=== PATIENT | male | born 1950 | race Caucasian/White ===

== ENCOUNTER 2020-04-11 12:48 | Day surgery (SDC) | payer OTHER ==
[2020-04-05 11:09] VITALS: BMI 23.1
[~2020-04-11 12:48] MED LIST: LACTATED RINGERS 1,000 ML IV SCH; TETRACAINE 0.5% OPHTH (PF) DROPS 4 ML BTL OP ONE
[2020-04-11 13:24] VITALS: TEMP 97.4
[2020-04-11] MEDS: TROPICAMIDE 1% OPHTH DROPS 2 ML BTL OP SCH ×3 (13:25→13:29)
[2020-04-11] MEDS: CIPROFLOXACIN 0.3% OPHTH SOLN 5 ML BTL OP SCH ×5 (13:25→15:17)
[2020-04-11] MEDS: CYCLOPENTOLATE 1% OPHTH SOLN 2 ML BTL OP SCH ×4 (13:25→13:32)
[2020-04-11] MEDS: PHENYLEPHRINE 2.5% OPHTH DRP 2ML OP SCH ×4 (13:25→13:32)
[2020-04-11] MEDS ORDERED: LABETALOL SYRINGE 5 MG/ML IVP ONE (14:25)
[2020-04-11] MEDS ORDERED: fentaNYL (PF) 50 MCG/ML 2 ML AMP ONE (15:00)
[2020-04-11] MEDS ORDERED: MIDAZOLAM 2 MG/2 ML VIAL ONE (15:00)
[2020-04-11] MEDS ORDERED: EPINEPHrine (PF) 0.5 ML in BALANCED SALT IRRIG SOLN COMB2 500 ML IRRIGATION ONE (15:16)
[2020-04-11] MEDS ORDERED: BALANCED SALT IRRIG SOLN COMB2 15 ML IRRIG.SOLN IRRIGATION ONE (15:18)
[2020-04-11] MEDS ORDERED: DUOVISC KIT (BLUE BOX) INTRAOCULA ONE (15:18)
[2020-04-11] MEDS ORDERED: LIDOCAINE (PF) 10 MG/ML 5ML AMP IV ONE (15:18)
--- NOTE | 2020-04-11 15:37 | P.OP ---
Date of Procedure: 04/11/20 Preoperative Diagnosis: Cataract Left eye Description of Procedure: Preoperative Diagnosis: Visually significant cataract, left eye Primary open angle glaucoma, left eye Postoperative Diagnosis: Visually significant cataract, left eye Primary open angle glaucoma, Left eye Procedure(s) Performed: Cataract extraction with intraocular lens implant, left eye Goniotomy, left eye Implants: Anthony sn60 28.0 Anesthesia: local Surgeon: Raquel Puga Estimated Blood Loss (ml): 0 Condition: stable Description of Procedure: The patient was identified in the preoperative holding area and informed consent was obtained. The patient understood the risks benefits alternatives and indications of cataract surgery. Patient showed the different options including intraocular lens options. The left eye was verified with the patient the patient was taken to the operating room. Patient was given IV sedation from the anesthesia team. Anesthetic drops were placed in the operative eye. The left eye was prepped and draped in usual sterile ophthalmic fashion. A lid speculum was placed in the operative eye and the microscope was swung into position. A paracentesis incision was made inferiorly in the left eye. Lidocaine was injected intracameral into the anterior chamber. Viscoelastic was injected into anterior chamber and a clear corneal incision was made temporally. A cystitome and Utrata forceps were used create a continuous curvilinear capsulorrhexis. Hydrodissection cannula was then used to hydrate and rotate the lens. Phaco was then carried out to divide the lens into 4 quadrants. Quadrants were removed using phaco emulsification. The irrigation-aspiration handpiece was then used to remove the cortex. Provisc was then used to inflate the capsular bag and the intraocular lens was placed in the bag without incident. Goniotomy lens allowed direct view of nasal Trabecular meshwork. A kahook blade was used to remove superficial TM for 2 clock hours . The irrigation-aspiration handpiece was then used to remove the remaining viscoelastic. The wounds were checked and found to be watertight. The pressure was checked and found to be favorable. The speculum was then removed. One drop of pred acetate and one drop of brimonidine and one drop of ciprofloxacin were placed in the operative eye. A shield was taped over the eye and the patient was taken recovery in stable condition. Patient was given instructions for post op care. Plan - Discharge Summary Discharge Rx Participant: No New Discharge Prescriptions: No Action Budesonide-Formot 160-4.5 Mcg [Symbicort 160-4.5 Mcg Inhaler] 2 puff INHALATION BID amLODIPine BESYLATE 5 mg PO DAILY Albuterol Sulfate [Ventolin HFA] 1 - 2 puff INHALATION Q4H PRN PRN Reason: Shortness Of Breath Ipratropium Nebulized [Atrovent Nebulized 0.2 MG/ML] 0.5 mg INHALATION BID Discharge Medication List Albuterol Sulfate [Ventolin HFA] 1 - 2 puff INHALATION Q4H PRN 04/05/20 [History] Budesonide-Formot 160-4.5 Mcg [Symbicort 160-4.5 Mcg Inhaler] 2 puff INHALATION BID 04/05/20 [History] Ipratropium Nebulized [Atrovent Nebulized 0.2 MG/ML] 0.5 mg INHALATION BID 04/05/20 [History] amLODIPine BESYLATE 5 mg PO DAILY 04/05/20 [History] Follow up Appointment(s)/Referral(s): Raquel Puga MD [STAFF PHYSICIAN] - 04/12/20 7:30 am
[2020-04-11 15:41] VITALS: RESP 16
[2020-04-11] MEDS ORDERED: prednisoLONE ACETATE 1% OPHTH DROPS 5 ML BTL LEFT EYE SCH (16:00)
[2020-04-11 16:05] VITALS: BP 136/85; PULSE 64
== END 2020-04-11 16:24 | disposition home or self-care (01) ==
LOC: OR 12:48
PROVIDERS: ATTEND Ophthalmology
DX: H25.13 Age-related nuclear cataract, bilateral (principal); H35.033 Hypertensive retinopathy, bilateral; I10 Essential (primary) hypertension; H04.123 Dry eye syndrome of bilateral lacrimal glands; J44.9 Chronic obstructive pulmonary disease, unspecified; K08.109 Complete loss of teeth, unspecified cause, unspecified class; M19.90 Unspecified osteoarthritis, unspecified site; F17.210 Nicotine dependence, cigarettes, uncomplicated; Z85.118 Personal history of other malignant neoplasm of bronchus and lung; Z85.828 Personal history of other malignant neoplasm of skin; Z90.49 Acquired absence of other specified parts of digestive tract; Z86.73 Personal history of transient ischemic attack (TIA), and cerebral infarction without residual deficits; Z79.899 Other long term (current) drug therapy; Z79.51 Long term (current) use of inhaled steroids; Z98.890 Other specified postprocedural states; Z91.89 Other specified personal risk factors, not elsewhere classified; Z87.898 Personal history of other specified conditions
CPT/HCPCS: 66984; V2632; J2250; J0171; J2001; J3010